=== PATIENT | male | born 1995 | race Caucasian/White ===

== ENCOUNTER 2021-03-13 06:16 | Emergency (ER) | payer BC ==
[~2021-03-13] VITALS: Ht 175.3 cm; Wt 81.6 kg
--- NOTE | 2021-03-13 06:22 | NUR ---
PATIENT WAS TRIAGED IN HALLWAY ON [facility] DUE TO NO MONITOR BEDS AVAILABLE IN THE ER.
--- NOTE | 2021-03-13 06:45 | NUR ---
ERMD INTO EVAL PATIENT.
--- NOTE | 2021-03-13 06:55 | NUR ---
PATIENT OUT OF UNIT FOR S RAY [facility]IA [facility].
--- NOTE | 2021-03-13 06:58 | NUR ---
PATIENT BACK FROM X RAY. PLACED PATIENT BACK IN HALLWAY DUE TO NO ROOMS AVAILABLE.
[2021-03-13 07:00] LABS: HEMATOCRIT 45.7 % (36.7-47.1); MEAN CORPUSCULAR HEMOGLOBIN 31.3 uug (23.8-33.4); MEAN CORPUSCULAR VOLUME 90.5 fL (73.0-96.2); PLATELET COUNT (AUTO) 299 K/uL (152-348)
[2021-03-13] MEDS ORDERED: ACETAMINOPHEN 325 MG TABLET PO ONE (07:15)
[2021-03-13] MEDS ORDERED: FAMOTIDINE 20 MG TABLET PO ONE (07:15)
[2021-03-13] MEDS ORDERED: IBUPROFEN 400 MG TABLET PO ONE (07:15)
[2021-03-13] MEDS ORDERED: HYDROCODONE/APAP 5-325MG TABLET PO ONE (07:15)
[2021-03-13 07:17] LABS: POTASSIUM 3.6 mmol/L (3.5-5.1)
[2021-03-13 07:23] LABS: BILIRUBIN,DIRECT 0.2 mg/dL (0.0-0.2); BILIRUBIN,TOTAL 0.7 mg/dL (0.2-1.0); TOTAL PROTEIN, SERUM 7.8 g/dL (6.4-8.2)
[2021-03-13] MEDS ORDERED: ACETAMINOPHEN 325 MG TABLET ONE (07:47)
[2021-03-13] MEDS ORDERED: FAMOTIDINE 20 MG TABLET ONE (07:47)
[2021-03-13] MEDS ORDERED: IBUPROFEN 400 MG TABLET ONE (07:47)
[2021-03-13] MEDS ORDERED: HYDROCODONE/APAP 5-325MG TABLET ONE (07:48)
[2021-03-13] MEDS: IV NORMAL SALINE 100 ML BAG IV ONE ×2 (08:15→10:00)
--- NOTE | 2021-03-13 08:20 | NUR ---
Pt is in the ER hallway in a gurney because there are currently no ER beds available. Pt is sleeping with his eyes closed with no s/s of distress noted. Pt refused saline lock at this time.
--- NOTE | 2021-03-13 10:00 | NUR ---
Pt moved from hallway to room 1B, placed on cont nurse monitoring and pulse ox, VSS, pt denies any pain at this time. Saline lock started to LAC, repeat troponin drawn and brought to lab.
[2021-03-13 11:21] VITALS: BP 125/77
--- NOTE | 2021-03-13 11:21 | NUR ---
IV removed. Catheter intact and site benign. Pressure and 4x4 gauze applied to site. No bleeding noted.
--- NOTE | 2021-03-13 11:21 | NUR ---
Patient discharged to home in stable condition. Written and verbal after care instructions given. Patient verbalizes understanding of instructions. Stressed follow up or return to ER for worsening s/s.
== END 2021-03-13 11:22 | disposition home or self-care (01) ==
LOC: ER 06:37
DX: R07.9 Chest pain, unspecified (principal); Z82.49 Family history of ischemic heart disease and other diseases of the circulatory system; J45.909 Unspecified asthma, uncomplicated; Z20.822 Contact with and (suspected) exposure to COVID-19
CPT/HCPCS: 36415; 70030-TC; 71045; 85025; 93005; A4663; J7030